=== PATIENT | female | born 2000 | race Caucasian/White ===

== ENCOUNTER 2020-01-24 14:27 | Inpatient (IN) ==
[2020-01-24] MEDS ORDERED: TERBUTALINE 1 MG/1 ML VIAL SUBCUT PRN (14:56)
[2020-01-24] MEDS ORDERED: miSOPROStoL 200 MCG TABLET VAG PRN (14:56)
[2020-01-24] MEDS ORDERED: LIDOCAINE 1% 50 ML VIAL MISC INJ ONE (14:56)
[2020-01-24] MEDS ORDERED: CARBOPROST TROMETHAMINE 250 MCG/ML AMP IM PRN (14:56)
[2020-01-24] MEDS ORDERED: ONDANSETRON 4 MG/2 ML VIAL IV PRN (14:56)
[2020-01-24] MEDS ORDERED: MEPERIDINE 50 MG/1 ML VIAL IV PRN (14:56)
[2020-01-24] MEDS ORDERED: BUTORPHANOL 2 MG/ML VIAL IV PRN (14:56)
[2020-01-24 15:32] LABS: Basophils % 0.2 % (0.0-0.8); Eosinophils % 0.3 % (0.00-10.9); Hematocrit 38.3 VOL% (35.7-47.0); Hemoglobin 12.8 GM/DL (12.0-16.0); Immature Granulocytes % 0.3 %; Immature Granulocytes Absolute 0.04 #; Lymphocytes # 2.1 10*3/uL (1.4-4.0); Lymphocytes % 17.4 % (21.3-54.2); Mean Corpuscular HGB Conc 33.4 GM/DL (32-36); Mean Corpuscular Volume 91.4 FL (87-102); Mean Platelet Volume 11.7 FL (9.6-12.0); Neutrophils % 76.8 % (38.7-73.9); Platelet Count 205 T/CUMM (130-400); Red Blood Count 4.19 MC/CUMM (3.8-5.5); Red Cell Distribution Width 13.2 % (9.3-17.3); White Blood Count 11.9 T/CUMM (4-12)
[2020-01-24 15:50] LABS: Albumin 3.1 G/DL (3.4-5.0); Bilirubin,Total 0.4 MG/DL (0.2-1.0); Calcium 8.9 MG/DL (8.5-10.1); Total Protein 7.5 G/DL (6.4-8.3); Uric Acid 5.6 MG/DL (2.6-6.0)
[2020-01-24] MEDS ORDERED: DINOPROSTONE VAG GEL 10 MG SYRINGE VAG ONE (16:00)
[2020-01-24] MEDS: LACTATED RINGERS 1,000 ML IV SCH (20:04)
[2020-01-24] MEDS ORDERED: diphenhydrAMINE 50 MG/1 ML VIAL IV PRN ×2 (20:22)
[2020-01-24] MEDS ORDERED: ePHEDrine 50 MG/ML AMP IV PRN (20:22)
[2020-01-24] MEDS ORDERED: FAMOTIDINE 20 MG/2 ML VIAL IV ONE (20:22)
[2020-01-24] MEDS ORDERED: CITRIC ACID/SODIUM CITRATE 30 ML UDCUP PO ONE (20:22)
[2020-01-24] MEDS ORDERED: NALOXONE 0.4 MG/ML VIAL IV PRN (20:22)
[2020-01-24] MEDS ORDERED: LACTATED RINGERS 1,000 ML IV ONE (20:22)
[2020-01-24] MEDS ORDERED: fentaNYL 2 MCG/ROPIV 0.2% EPID 100 ML EPIDURAL SCH (20:30)
[2020-01-25] MEDS: LACTATED RINGERS 1,000 ML IV SCH (03:47)
[2020-01-25] MEDS: OXYTOCIN/LR 20 UNIT/1,000 ML BAG IV SCH ×2 (05:04→11:31)
[2020-01-25] MEDS ORDERED: OXYTOCIN/LR 20 UNIT/1,000 ML BAG IV ONE ×2 (09:50→11:46)
[2020-01-25] MEDS ORDERED: TRANEXAMIC ACID 1,000 MG/10 ML VIAL ONE (09:50)
[2020-01-25] MEDS ORDERED: METHYLERGONOVINE 0.2 MG/1 ML AMP ONE (09:50)
[2020-01-25] MEDS ORDERED: miSOPROStoL 200 MCG TABLET ONE (09:50)
[2020-01-25] MEDS ORDERED: CARBOPROST TROMETHAMINE 250 MCG/ML AMP IM ONE (09:51)
[2020-01-25 10:58] LABS: Cord Venous Blood HCO3 21.7 MMOL/L; Cord Venous Blood PCO2 41.4 MMHG; Cord Venous Blood PO2 30.9
[2020-01-25 10:59] LABS: Cord Arterial Blood HCO3 24.7 MMOL/L
[2020-01-25] MEDS ORDERED: LANOLIN 50% CREAM 0.3 OZ TUBE TOP PRN (11:46)
[2020-01-25] MEDS ORDERED: WITCH HAZEL PADS 100/JAR TOP PRN (11:46)
[2020-01-25] MEDS ORDERED: MEASLES/MUMPS/RUBELLA VACCINE 0.5 ML VIAL SUBCUT ONE (11:46)
[2020-01-25] MEDS ORDERED: RHO(D) IMMUNE GLOBULIN 300 MCG SYRINGE IM ONE (11:46)
[2020-01-25] MEDS ORDERED: BISACODYL 10 MG SUPP RECTAL PRN (11:46)
[2020-01-25] MEDS ORDERED: DIPH/TET/ACEL PERT BOOSTER VACCINE 0.5 ML VIAL IM ONE (11:46)
[2020-01-25] MEDS ORDERED: HYDROCORTISONE 2.5% RECTAL CREAM 30 GM TUBE TOP PRN (11:46)
[2020-01-25] MEDS ORDERED: BENZOCAINE 20%/MENTHOL 0.5% SPRAY 56 GM CAN TOP PRN (11:46)
[2020-01-25] MEDS ORDERED: oxyCODONE/ACETAMINOPHEN 5-325 MG TABLET PO PRN (11:46)
[2020-01-25] MEDS ORDERED: ACETAMINOPHEN 325 MG TABLET PO PRN (11:46)
[2020-01-25] MEDS: IBUPROFEN 800 MG TABLET PO PRN ×2 (11:58→17:30)
[2020-01-25] MEDS: oxyCODONE/ACETAMINOPHEN 5-325 MG TABLET PO PRN (12:37)
[2020-01-25] MEDS: DOCUSATE SODIUM 100 MG CAPSULE PO SCH (21:32)
[2020-01-26] MEDS: oxyCODONE/ACETAMINOPHEN 5-325 MG TABLET PO PRN (04:00)
[2020-01-26 06:50] LABS: Basophils % 0.2 % (0.0-0.8); Eosinophils # 0.1 10*3/uL (0.0-0.87); Eosinophils % 0.7 % (0.00-10.9); Hematocrit 34.5 VOL% (35.7-47.0); Hemoglobin 11.2 GM/DL (12.0-16.0); Immature Granulocytes % 0.4 %; Immature Granulocytes Absolute 0.05 #; Lymphocytes # 1.6 10*3/uL (1.4-4.0); Mean Corpuscular HGB Conc 32.5 GM/DL (32-36); Mean Corpuscular Volume 94.5 FL (87-102); Mean Platelet Volume 11.4 FL (9.6-12.0); Monocytes % 5.8 % (1.7-12.7); Neutrophils % 78.9 % (38.7-73.9); Platelet Count 181 T/CUMM (130-400); Red Blood Count 3.65 MC/CUMM (3.8-5.5); Red Cell Distribution Width 13.4 % (9.3-17.3); White Blood Count 11.5 T/CUMM (4-12)
[2020-01-26 07:19] VITALS: BP 116/72
[2020-01-26] MEDS: DOCUSATE SODIUM 100 MG CAPSULE PO SCH (08:36)
== END 2020-01-26 13:15 | disposition home or self-care (01) | DRG 807 ==
LOC: N.LDOUT 14:27 → N.LD 14:31 → N.OB 01-25 14:16
PROVIDERS: ADMIT Obstetrics & Gynecology; ATTEND Obstetrics & Gynecology